=== PATIENT | female | born 1980 | race Caucasian/White ===

== ENCOUNTER 2019-05-13 23:08 | Emergency (ER) | payer OTHER ==
[~2019-05-13] VITALS: Ht 157.5 cm; Wt 77.0 kg
[2019-05-13 23:08] VITALS: BP 145/79
[~2019-05-13 23:08] MED LIST: AZIT250T PO; CITA10TA8 PO; PRED50TA PO
[2019-05-13] MEDS ORDERED: KETOROLAC 15 MG/ML VIAL. ONE (23:44)
[2019-05-13] MEDS ORDERED: diphenhydrAMINE HCL 25 MG CAPSULE PO ONE (23:45)
[2019-05-13] MEDS ORDERED: KETOROLAC 60 MG/2 ML VIAL. IM ONE (23:45)
[2019-05-13] MEDS ORDERED: METOCLOPRAMIDE HCL 10 MG/2 ML VIAL. IM ONE (23:45)
--- NOTE | 2019-05-13 23:51 | PHYS DOC ---
Past History Past Medical History: Depression Past Surgical History: No Surgical History Alcohol Use: None Drug Use: None Adult General Chief Complaint Chief Complaint: HEADACHE HPI HPI Patient is a 38 year old female who presents with complaint of headache and nausea. The patient states that her headache started earlier this afternoon. States that she does have history of migraine headaches. Notes that her migraine headaches typically affect the right side of her head, however she is having bilateral frontal headache at this time. Also notes associated nausea but has had no vomiting. Denies dizziness or vision changes. She states that 5 days ago she experienced body aches and chills which improved within 2 days. Exposed to influenza at home. Has not had any fevers over the past 2 days. Does note upper neck tightness. Denies weakness of the extremities, shortness of breath, chest pain, or abdominal pain. States that she took Excedrin migraine approximately 3 hours prior to arrival with no significant improvement. Review of Systems Review of Systems Constitutional: Denies fever or chills [] Eyes: Denies change in visual acuity, redness, or eye pain [] HENT: Denies nasal congestion or sore throat [] Respiratory: Denies cough or shortness of breath [] Cardiovascular: Denies chest pain or edema[] GI: Nausea, denies abdominal pain, vomiting, bloody stools or diarrhea [] : Denies dysuria or hematuria [] Musculoskeletal: Denies back pain or joint pain [] Integument: Denies rash or skin lesions [] Neurologic: Headache, denies focal weakness or sensory changes [] All other systems were reviewed and found to be within normal limits, except as documented in this note. Allergies Allergies Allergies Coded Allergies Type Severity Reaction Last Updated Verified Penicillins Allergy Unknown 01/30/16 Yes Physical Exam Physical Exam Constitutional: Well developed, well nourished, no acute distress, afebrile, non-toxic appearance. [] HENT: Normocephalic, atraumatic, bilateral external ears normal, oropharynx moist, no oral exudates, nose normal. [] Eyes: PERRLA, EOMI, mild photophobia present, conjunctiva normal, no discharge. [] Neck: Normal range of motion, no tenderness, supple, no stridor. [] Cardiovascular:Heart rate regular rhythm, no murmur [] Lungs & Thorax: Bilateral breath sounds clear to auscultation [] Abdomen: Bowel sounds normal, soft, no tenderness, no masses, no pulsatile masses. [] Skin: Warm, dry, no erythema, no rash. [] Back: No tenderness, no CVA tenderness. [] Extremities: No tenderness, no cyanosis, no clubbing, ROM intact, no edema. [] Neurologic: Alert and oriented X 3, normal motor function, normal sensory function, no focal deficits noted. [] Current Patient Data Vital Signs Vital Signs Date Time Temp Pulse Resp B/P (MAP) Pulse Ox O2 Delivery O2 Flow Rate FiO2 05/13/19 23:08 98.1 74 18 145/79 (101) 97 Room Air Lab Results Not performed EKG EKG Not performed[] Radiology/Procedures Radiology/Procedures Not performed[] Course & Med Decision Making Course & Med Decision Making Pertinent Labs and Imaging studies reviewed. (See chart for details) The patient was given IM Toradol, Reglan, and oral Benadryl in the emergency department. Patient reports improvement in headache symptoms. Patient displays no focal neurologic deficits and no meningeal symptoms. Examination appears consistent with migraine headache. Prescribed ibuprofen and Reglan for outpatient treatment. Recommended follow-up tomorrow with primary doctor for reevaluation. Advised return to emergency department for any worsening symptoms. Patient voiced understanding and in agreement with treatment plan.[] Dragon Disclaimer Dragon Disclaimer This electronic medical record was generated, in whole or in part, using a voice recognition dictation system. Departure Departure: Impression: Primary Impression: Migraine Disposition: 01 HOME, SELF-CARE Condition: IMPROVED Referrals: CHAS LEGER DO (PCP) Patient Instructions: Migraine Headache Additional Instructions: Follow-up with your primary doctor tomorrow for reevaluation. Return to the e mergency department for any worsening symptoms. Scripts Metoclopramide Hcl (REGLAN) 10 Mg Tablet 1 TAB PO TID PRN for NAUSEA/VOMITING for 10 Days, #30 TAB 0 Refills before food and bedtime Prov: ALVARADO CERDA MD 05/14/19 Ibuprofen (IBUPROFEN) 600 Mg Tablet 600 MG PO Q6HRS PRN for HEADACHE, #20 TAB Prov: ALVARADO CERDA MD 05/14/19 Problem Qualifiers Primary Impression: Migraine Migraine type: unspecified Status migrainosus presence: without status migrainosus Intractability: not intractable Qualified Codes: G43.909 - Migraine, unspecified, not intractable, without status migrainosus ALVARADO CERDA MD May 13, 2019 23:51
[2019-05-14] MEDS ORDERED: KETOROLAC 15 MG/ML VIAL. IM ONE
[2019-05-14] MEDS ORDERED: METO10TA81 PO (00:19)
[2019-05-14] MEDS ORDERED: IBUP600T16 PO (00:19)
== END 2019-05-14 00:20 | disposition home or self-care (01) ==
LOC: ER 23:08
DX: G43.909 Migraine, unspecified, not intractable, without status migrainosus (principal); F32.9 Major depressive disorder, single episode, unspecified; Z88.0 Allergy status to penicillin
CPT/HCPCS: 96372; 99284; J1885; J2765; Q0163

== ENCOUNTER 2020-12-17 17:59 | Emergency (ER) | payer OTHER ==
[~2020-12-17] VITALS: Ht 157.5 cm; Wt 77.0 kg
[~2020-12-17 17:59] MED LIST changes: +IBUP600T16 PO; +METO10TA81 PO
[2020-12-17 19:05] VITALS: BP 126/94
[2020-12-17] MEDS ORDERED: CITA40TA12 PO (19:30)
[2020-12-17] MEDS ORDERED: TOPI50TA38 PO (19:31)
[2020-12-17] MEDS ORDERED: SUMA50TA3 PO (19:32)
[2020-12-17] MEDS ORDERED: ONDA4TAB12 PO (19:45)
--- NOTE | 2020-12-17 19:45 | PHYS DOC ---
Past History Past Medical History: Depression (ISAIAS SIMPSON APRN) Past Surgical History: No Surgical History (ISAIAS SIMPSON APRN) Alcohol Use: None Drug Use: None (ISAIAS SIMPSON APRN) General Adult EDM: Chief Complaint: HEADACHE HPI: HPI: Patient is a 40-year-old female who presents with migraine headache. Patient has a history of migraines. Patient normally takes Topamax and sumatriptan. Patient states that normal migraine meds are not working and has had a headache for the last 4 days. Patient reports light sensitivity and nausea and vomiting. Patient is rating pain 8/10. Patient denies all other health history. (ISAIAS SIMPSON APRN) Review of Systems: Review of Systems: Constitutional: Denies fever or chills Eyes: Denies change in visual acuity HENT: Denies nasal congestion or sore throat Respiratory: Denies cough or shortness of breath Cardiovascular: Denies chest pain or edema GI: Denies abdominal pain. Reports nausea. Denies vomiting, bloody stools or diarrhea : Denies dysuria Musculoskeletal: Denies back pain or joint pain Integument: Denies rash Neurologic: Reports migraine headache Endocrine: Denies polyuria or polydipsia Lymphatic: Denies swollen glands Psychiatric: Denies depression or anxiety (ISAIAS SIMPSON APRN) Current Medications: Current Meds: Current Medications Medications (Trade) Dose Ordered Sig/Zuleika Start Time Stop Time Status Last Admin Dose Admin Ketorolac Tromethamine (Toradol 15mg Vial) 15 mg 1X ONCE 12/17/20 20:00 12/17/20 20:01 Ondansetron HCl (Zofran Odt) 4 mg 1X ONCE 12/17/20 20:00 12/17/20 20:01 (ISAIAS SIMPSON APRN) Allergies: Allergies: Allergies Coded Allergies Type Severity Reaction Last Updated Verified Penicillins Allergy Unknown 01/30/16 Yes (ISAIAS SIMPSON APRN) Physical Exam: PE: Constitutional: Well developed, well nourished, no acute distress, non-toxic appearance. [] HENT: Normocephalic, atraumatic, bilateral external ears normal, oropharynx moist, no oral exudates, nose normal. [] Eyes: PERRLA, EOMI, conjunctiva normal, no discharge. [] Neck: Normal range of motion, no tenderness, supple, no stridor. [] Cardiovascular:Heart rate regular rhythm, no murmur [] Lungs & Thorax: Bilateral breath sounds clear to auscultation [] Abdomen: Bowel sounds normal, soft, no tenderness, no masses, no pulsatile masses. [] Skin: Warm, dry, no erythema, no rash. [] Back: No tenderness, no CVA tenderness. [] Extremities: No tenderness, no cyanosis, no clubbing, ROM intact, no edema. [] Neurologic: Alert and oriented X 3, normal motor function, normal sensory function, no focal deficits noted. [] Psychologic: Affect normal, judgement normal, mood normal. [] (ISAIAS SIMPSON APRN) Current Patient Data: Vital Signs: Vital Signs Date Time Temp Pulse Resp B/P (MAP) Pulse Ox O2 Delivery O2 Flow Rate FiO2 12/17/20 19:05 98.1 94 20 126/94 (105) 96 Room Air (ISAIAS SIMPSON APRN) EKG: EKG: [] (ISAIAS SIMPSON APRN) Radiology/Procedures: Radiology/Procedures: [] (ISAIAS SIMPSON APRN) Heart Score: C/O Chest Pain: No Risk Factors: Risk Factors: DM, Current or recent (<one month) smoker, HTN, HLP, family history of CAD, obesity. Risk Scores: Score 0 - 3: 2.5% MACE over next 6 weeks - Discharge Home Score 4 - 6: 20.3% MACE over next 6 weeks - Admit for Clinical Observation Score 7 - 10: 72.7% MACE over next 6 weeks - Early Invasive Strategies (ISAIAS SIMPSON APRN) Course & Med Decision Making: Course & Med Decision Making Pertinent Labs and Imaging studies reviewed. (See chart for details) [] 40-year-old female presents with a migraine headache. Patient has a history of migraines and has been prescribed Topamax and sumatriptan which normally prevent migraine. Patient states that the medication did not work this time and she has been having pain, nausea, light sensitivity for the last 4 days. Patient given Toradol, Benadryl and Zofran to help with symptoms. Advised patient to follow-up with her PCP. Sending patient home with prescription for Zofran. Patient is appreciative and okay with discharge plan. Patient's dynamically stable upon disposition. (ISAIAS SIMPSON APRN) Darcy Disclaimer: Darcy Disclaimer: This electronic medical record was generated, in whole or in part, using a voice recognition dictation system. (ISAIAS SIMPSON APRN) Departure Departure: Impression: Primary Impression: Migraine headache Qualified Codes: G43.009 - Migraine without aura, not intractable, without status migrainosus Disposition: HOME / SELF CARE / HOMELESS Condition: STABLE Referrals: CHAS LEGER DO (PCP) Patient Instructions: Migraine Headache, [id number] Additional Instructions: The emergency room for migraine headache. You were given Toradol and Zofran Doppler symptoms. Also in a send you home with Zofran to help with nausea. If you have worsening symptoms or concerns please return to the ER. Otherwise please follow-up with your PCP. EMERGENCY DEPARTMENT GENERAL DISCHARGE INSTRUCTIONS Thank you for coming to [facility] ([facility]) today and trusting us with you care. We trust that you had a positivie experience in our Emergency Department. If you wish to speak to the department management, you may call the director at [phone]. YOUR FOLLOW UP INSTRUCTIONS ARE FOLLOWS: 1. Do you have a private Doctor? If you do not have a private doctor, please ask for a resource list of physicians or clinics that may be able to assist you with follow up care. 2. The Emergency Physician has interpreted your x-rays. The X-Ray specialist will also review them. If there is a change in the findings, you will be notified in 48 hours when at all possible. 3. A lab test or culture has been done, your results will be reviewed and you will be notified if you need a change in treatment. ADDITIONAL INSTRUCTIONS AND INFORMATION: 1. Your care today has been supervised by a physician who is specially trained in emergency care. Many problems require more than one evaluation for a complete diagnosis and treatment. We recommend that you schedule your follow up appointment as recommended to ensure complete treatment of you illness or injury. If you are unable to obtain follow up care and continue to have a problem, or if your condition worsens, we recommend that you return to the ED. 2. We are not able to safely determine your condition over the phone nor are we able to give sound medical advice over the phone. For these safety reasons, if you call for medical advice we will ask you to come to the ED for further evaluation. 3. If you have any questions regarding these discharge instructions please call the ED at [phone]. SAFETY INFORMATION: In the interest of safety, wellness, and injury prevention; we encourage you to wear your sealbelt, if you smoke; quite smoking, and we encourage family to use a protective helmet for bicycling and other sporting events that present an increased risk for head injury. IF YOUR SYMPTOMS WORSEN OR NEW SYMPTOMS DEVELOP, OR YOU HAVE CONCERNS ABOUT YOUR CONDITION; OR IF YOUR CONDITION WORSENS WHILE YOU ARE WAITING FOR YOUR FOLLOW UP APPOINTMENT; EITHER CONTACT YOUR PRIMARY CARE DOCTOR, THE PHYSICIAN WHOSE NAME AND NUMBER YOU WERE GIVEN, OR RETURN TO THE ED IMMEDIATELY. Scripts Ondansetron (ONDANSETRON ODT) 4 Mg Tab.rapdis 1 TAB PO PRN Q6-8HRS for nausea for 10 Days, #16 TAB Prov: ISAIAS SIMPSON APRN 12/17/20 Attending Signature Attending Signature I have participated in the care of this patient and I have reviewed and agree with all pertinent clinical information above including history, exam, and recommendations. (LISETTE RANGEL MD) ISAIAS SIMPSON APRN Dec 17, 2020 19:45 LISETTE RANGEL MD Dec 18, 2020 06:41
[2020-12-17] MEDS ORDERED: KETOROLAC 15 MG/ML VIAL. IM ONE (20:00)
[2020-12-17] MEDS ORDERED: ONDANSETRON ODT 4 MG TAB.RAPDIS PO ONE (20:00)
[2020-12-17] MEDS ORDERED: diphenhydrAMINE 50 MG/ML VIAL IM ONE ×2 (21:15)
== END 2020-12-17 21:20 | disposition home or self-care (01) ==
LOC: ER 18:02
DX: G43.009 Migraine without aura, not intractable, without status migrainosus (principal); R11.2 Nausea with vomiting, unspecified; F32.9 Major depressive disorder, single episode, unspecified; Z88.0 Allergy status to penicillin
CPT/HCPCS: 96372; 99284; J1200; J1885; Q0162